=== PATIENT | female | born 1980 | race Caucasian/White ===

== ENCOUNTER → 2020-04-14 | Outpatient (CLI) | payer OTHER ==
[2015-05-28 08:16] VITALS: BP 133/79
[~2020-04-14] MED LIST: IOHEXOL 240 MG/ML 50ML VIAL. ONE; IOHEXOL 240 MG/ML 50ML VIAL. PO ONE; IOHEXOL 300 MG/ML 75 ML VIAL. IV ONE
--- NOTE | 2020-04-14 10:49 | RAD ---
Noncontrast CT scan of the abdomen and pelvis for left lower quadrant pain, no comparison. TECHNIQUE: Axial CT images are obtained from the apex of diaphragm to the pelvic floor. Oral contrast was administered. Sagittal and coronal reformations are evaluated. FINDINGS: Lung bases are clear. No osseous abnormalities are seen. Heart size within normal limits. Evaluation of the solid organ parenchyma of the abdomen is limited by lack of IV contrast. There is an 8mm benign adrenal adenoma on the right adrenal gland. No morphologic abnormalities of the left adrenal gland, spleen, pancreas, liver, or kidneys is identified. No free or loculated fluid collections are seen with the abdomen or pelvis. There is inhomogeneous opacification of large and small bowel with no gross abnormalities identified. Large amount stool is distributed throughout the colon. Uterus and ovaries demonstrate normal morphology. Urinary bladder is grossly unremarkable. No renal or ureteral calculi are identified. The appendix is normal. There are numerous prominent dilated pelvic veins which may relate to pelvic venous congestion. IMPRESSION: 1. Numerous dilated pelvic veins which may suggest pelvic congestion syndrome. Pelvic MRI or pelvic ultrasound may be of benefit. 2. No other CT abnormalities to account for the patient's clinical presentation. 3. Small benign right adrenal adenoma for which no additional follow-up is required. PQRS Compliance Statement: One or more of the following individualized dose reduction techniques were utilized for this examination: 1. Automated exposure control 2. Adjustment of the mA and/or kV according to patient size 3. Use of iterative reconstruction technique Electronically signed by: Moises Glover MD (04/14/2020 10:46 AM) [id number]
== END ==
LOC: CT 09:20
PROVIDERS: ATTEND Clinical Nurse Specialist Family Health
DX: D35.01 Benign neoplasm of right adrenal gland (principal); R10.32 Left lower quadrant pain
CPT/HCPCS: 74177; Q9966; Q9967